=== PATIENT | female | born 1985 | race African-American/Black ===

== ENCOUNTER 2020-03-26 10:16 | Emergency (ER) | payer MEDICAID ==
[~2020-03-26] VITALS: Ht 157.5 cm; Wt 74.8 kg
[~2020-03-26 10:16] MED LIST: ALPR0.25; HYDR-1421; [UNRECOGNIZED DRUG - OTHER]
[2020-03-26] MEDS ORDERED: PANTOPRAZOLE 40 MG/10 ML VIAL INJ IV STA (10:25)
[2020-03-26] MEDS ORDERED: SODIUM CHLORIDE 0.9% 1,000 ML IVB ONE (10:25)
[2020-03-26] MEDS ORDERED: PROCHLORPERAZINE EDISYLATE 5 MG/ML 2ML VIAL IV ONE (10:30)
[2020-03-26] MEDS ORDERED: MORPHINE SULFATE 4 MG/ML SYR/VIAL IV ONE (10:30)
[2020-03-26 10:58] LABS: Basophils # (auto) 0 10 ^3/uL (0-0.2); Basophils % (auto) 0.5 % (0.0-2.0); Eosinophils # (auto) 0.2 10 ^3/uL (0-0.8); Hematocrit 41.3 % (36.0-46.0); Hemoglobin 13.4 g/dL (12.2-16.2); Lymphocytes # (auto) 1.7 10 ^3/uL (0.4-5.4); Lymphocytes % (auto) 21.9 % (10.0-50.0); Mean Corpuscular Hgb Conc. 32.5 g/dL (32.0-36.0); Mean Corpuscular Volume 83.1 fL (80.0-100.0); Monocytes # (auto) 0.6 10 ^3/uL (0-1.3); Monocytes % (auto) 7.5 % (0.0-12.0); Neutrophils # (auto) 5.2 10 ^3/uL (1.6-8.6); Neutrophils % (auto) 68.1 % (37.0-80.0); Nucleated Red Blood Cells % 0.2 %; Platelet Count (auto) 288 10^3/uL (140-450); Red Blood Cells 4.97 10^6/uL (4.0-5.20); Red Cell Distribution Width 13.7 % (11.8-14.3); White Blood Cell 7.6 10^3/uL (4.4-10.8)
[2020-03-26 11:12] LABS: Albumin 3.5 g/dL (3.4-5.0); BUN/Creatinine Ratio 12.2; Calcium 8.6 mg/dL (8.5-10.1); Potassium 3.5 mmol/L (3.5-5.1)
[2020-03-26 11:15] LABS: Bilirubin, Total 0.5 mg/dL (0.2-1.0); Total Protein 7.8 g/dL (6.4-8.2)
[2020-03-26 12:09] VITALS: BP 168/96
[2020-03-26 12:25] LABS: Urine Bacteria FEW /hpf (None Seen); Urine Blood 1+ /uL (Negative); Urine Mucus FEW (None Seen); Urine Specific Gravity 1.023 (1.001-1.035); Urine WBC 1 /hpf (0 - 5)
== END 2020-03-26 13:20 | disposition home or self-care (01) ==
LOC: ER 10:16
DX: R10.13 Epigastric pain (principal); R11.2 Nausea with vomiting, unspecified; R19.7 Diarrhea, unspecified; Z98.890 Other specified postprocedural states
CPT/HCPCS: 36415; 76705; 80053; 81001; 81025; 83690; 85025; 96374; 96375; 99284; C9113; J0780; J2270; J7030

== ENCOUNTER 2021-03-24 15:15 | Emergency (ER) | payer MEDICAID ==
[~2021-03-24] VITALS: Ht 157.5 cm; Wt 84.8 kg
[2021-03-24 15:18] VITALS: BP 153/80
[2021-03-24] MEDS ORDERED: PROCHLORPERAZINE EDISYLATE 5 MG/ML 2ML VIAL IV ONE (15:30)
[2021-03-24] MEDS ORDERED: SODIUM CHLORIDE 0.9% 1,000 ML IV ONE ×2 (15:30)
[2021-03-24] MEDS ORDERED: MORPHINE SULFATE 4 MG/ML SYR/VIAL IV ONE (15:30)
[2021-03-24 16:11] LABS: Basophils # (auto) 0 10 ^3/uL (0-0.2); Eosinophils # (auto) 0.1 10 ^3/uL (0-0.8); Eosinophils % (auto) 1.4 % (0.0-7.0); Hemoglobin 13.2 g/dL (12.2-16.2); Lymphocytes # (auto) 1.3 10 ^3/uL (0.4-5.4); Monocytes # (auto) 0.4 10 ^3/uL (0-1.3); Neutrophils # (auto) 4.8 10 ^3/uL (1.6-8.6)
[2021-03-24 16:13] LABS: Basophils % (auto) 0.6 % (0.0-2.0); Hematocrit 38.9 % (36.0-46.0); Lymphocytes % (auto) 20.1 % (10.0-50.0); Mean Corpuscular Hemoglobin 26.8 pg (28.0-32.0); Mean Corpuscular Volume 78.8 fL (80.0-100.0); Monocytes % (auto) 6.2 % (0.0-12.0); Neutrophils % (auto) 71.7 % (37.0-80.0); Red Blood Cells 4.94 10^6/uL (4.0-5.20); Red Cell Distribution Width 14.1 % (11.8-14.3); White Blood Cell 6.6 10^3/uL (4.4-10.8)
[2021-03-24 16:40] LABS: Alanine Aminotransferase 31 U/L (13-56); Albumin 3.9 g/dL (3.4-5.0); Anion Gap 8 (5-15); Aspartate Aminotransferase 20 U/L (15-37); Blood Urea Nitrogen 8 mg/dL (7-18); Calcium 8.7 mg/dL (8.5-10.1); Carbon Dioxide 23 mmol/L (21-32); Chloride 108 mmol/L (98-107); GFR African American 117 mL/min; GFR Non-African American 96 mL/min; Glucose 102 mg/dL (74-106); Potassium 3.6 mmol/L (3.5-5.1); Sodium 139 mmol/L (136-145)
[2021-03-24 16:44] LABS: Alkaline Phosphatase 67 U/L (45-117); Bilirubin, Total 0.4 mg/dL (0.2-1.0); Total Protein 7.9 g/dL (6.4-8.2)
[2021-03-24] MEDS ORDERED: KETOROLAC TROMETH 30 MG/ML 1ML VIAL ONE (17:10)
[2021-03-24] MEDS ORDERED: KETOROLAC TROMETH 30 MG/ML 1ML VIAL IV ONE (17:30)
== END 2021-03-24 18:58 | disposition home or self-care (01) ==
LOC: ER 15:15 → EDBD 15:15 → EDUNIT# 15:15 → ER 18:56
DX: R51.9 Headache, unspecified (principal); I10 Essential (primary) hypertension; F12.10 Cannabis abuse, uncomplicated
CPT/HCPCS: 36415; 70450; 80053; 84484; 85025; 96361; 96374; 96375; 99284; J0780; J1885; J7030